=== PATIENT | female | born 1995 | race Two or more races ===

== ENCOUNTER 2018-04-18 11:11 | Emergency (ER) | payer MEDICAID ==
[~2018-04-18] VITALS: Ht 152.4 cm; Wt 54.4 kg
[2018-04-18] MEDS ORDERED: ACETAMINOPHEN 325 MG TABLET PO ONE (12:00)
[2018-04-18] MEDS ORDERED: ACETAMINOPHEN ES 500 MG TABLET ONE (12:16)
[2018-04-18] MEDS ORDERED: CEPHALEXIN MONOHYDRATE 500 MG CAPSULE PO ONE ×2 (12:27→12:30)
[2018-04-18] MEDS ORDERED: SULFAMETH/TRIMETH 800/160 MG 1 UDTAB TABLET PO ONE ×2 (12:27→12:30)
[2018-04-18 12:48] VITALS: BP 124/82
--- NOTE | 2018-04-18 12:50 | NUR ---
Patient discharged to home in stable condition. Written and verbal after care instructions given. Patient verbalizes understanding of instruction.
== END 2018-04-18 12:51 | disposition home or self-care (01) ==
LOC: ER 11:16
DX: N76.4 Abscess of vulva (principal); N75.1 Abscess of Bartholin's gland; Z85.43 Personal history of malignant neoplasm of ovary
CPT/HCPCS: 56405; 87070; 99284; A4606; A6402 ×2; A6407; Z7610; 87186-TC

== ENCOUNTER 2021-07-20 18:48 | Emergency (ER) | payer SELFPAY ==
[~2021-07-20] VITALS: Ht 165.1 cm; Wt 60.3 kg
[2021-07-20 19:13] VITALS: BP 134/98
--- NOTE | 2021-07-20 19:22 | NUR ---
strep swab collected and sent to lab.
[2021-07-20] MEDS ORDERED: AMOX500C2 PO (20:26)
[2021-07-20] MEDS ORDERED: IBUP-1955 PO (20:26)
[2021-07-20] MEDS ORDERED: PRED20TA PO (20:26)
[2021-07-20] MEDS ORDERED: HYDR-4303 PO (20:26)
--- NOTE | 2021-07-20 20:34 | NUR ---
Patient discharged to home in stable condition. Written and verbal after care instructions given. Patient verbalizes understanding of instruction.
== END 2021-07-20 20:35 | disposition home or self-care (01) ==
LOC: ER 18:55
DX: Z87.42 Personal history of other diseases of the female genital tract (principal); Z79.899 Other long term (current) drug therapy; J03.00 Acute streptococcal tonsillitis, unspecified
CPT/HCPCS: 86403-TC; 87070-TC